=== PATIENT | male | born 1980 | race Caucasian/White ===

== ENCOUNTER 2023-01-18 11:25 | Emergency (ER) | payer MEDICARE, MEDICAID, SELFPAY ==
[2023-01-18 11:41] VITALS: BP 134/73; PULSE 66; RESP 16; TEMP 36.6; O2SAT 100
--- NOTE | 2023-01-18 12:20 | ED.HEATRA ---
HPI - Head Injury General Chief complaint: Head Injury Stated complaint: Right Head Injury Time Seen by Provider: 01/18/23 11:52 Source: patient and RN notes reviewed Mode of arrival: ambulatory Limitations: no limitations History of Present Illness HPI Narrative: Patient presents today complaining of a laceration to his right eyebrow. He tripped over an extension cord just prior to arrival and struck his eyebrow area either on his couch or the wall as he fell. Denies loss of consciousness. Denies neck pain, headache, nausea vomiting, vision changes, or any additional symptoms. 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 He does have a shunt, but is currently healthy and is on no medications. Related Data Home Medications Medication Instructions Recorded Confirmed No Home Medications 01/18/23 01/18/23 Allergies Allergy/AdvReac Type Severity Reaction Status Date / Time No Known Allergies Allergy Verified 01/18/23 11:39 Review of Systems Review of Systems: CONSTITUTIONAL: Denies body aches, fever, chills, or sweats. EYES: Denies visual changes, redness, or discharge. ENT: Denies rhinorrhea, congestion, sore throat, or otalgia. CARDIOVASCULAR: Denies chest pain, palpitations, or edema. RESPIRATORY: Denies cough or dyspnea. GASTROINTESTINAL: Denies abdominal pain, nausea, vomiting, or diarrhea. GENITOURINARY: Denies dysuria or hematuria. SKIN: Denies rash, itching. + right eyebrow laceration MUSCULOSKELETAL: Denies back pain, joint pain, or myalgia. NEUROLOGIC: Denies headache, numbness, tingling, or weakness. PSYCH: Denies depression or anxiety. [facility] Past Medical History Medical History (Updated 01/18/23 @ 12:41 by Kia Silverman, RADHA, ) History of stroke Personal history of testicular cancer Surgical History Surgical History (Updated 01/18/23 @ 12:41 by Kia Silverman, CALL OUT CLERK, ) S/P [facility] CERTIFIED CONCIERGE shunt Comments At time of signature, I have reviewed and agree with nursing past medical, surgical, social and family history unless otherwise noted. Please see nursing chart for further information. There is no relevant family history pertinent to the presenting complaint Exam Narrative: GENERAL: Well-appearing, well-nourished, and in no acute distress. HEAD: Normocephalic. EYES: EOMI. PERRL. No nystagmus. Orbits are nontender. Conjunctiva normal. 2 cm L-shaped full-thickness linear laceration to the right eyebrow. No active bleeding. Mild surrounding edema. No deformity or instability noted. ENT: Mucous membranes pink and moist. Nares clear. No rhinorrhea. NECK: Normal AROM. CHEST: No respiratory distress. EXTREMITIES: Normal range of motion. No edema. SKIN: Warm, dry, no rash. Capillary refill normal. Normal skin turgor. NEURO: No focal deficits. Alert and oriented x3. Gait steady. PSYCH: Normal affect. No signs of depression or anxiety. Course Course Level of Care: Express Care Visit Vital Signs Vital signs: Vital Signs Temperature 97.8 F 01/18/23 11:41 Pulse Rate 66 01/18/23 11:41 Respiratory Rate 16 01/18/23 11:41 Blood Pressure 134/73 01/18/23 11:41 Pulse Oximetry 100 01/18/23 11:41 Oxygen Delivery Room Air 01/18/23 11:41 Temperature 97.8 F 01/18/23 11:41 Pulse Rate 66 01/18/23 11:41 Respiratory Rate 16 01/18/23 11:41 Blood Pressure 134/73 01/18/23 11:41 Pulse Oximetry 100 01/18/23 11:41 Oxygen Delivery Room Air 01/18/23 11:41 Reviewed. Pt has been instructed to follow up with his PCP regarding his elevated blood pressure today. Procedures Laceration Laceration 1: Date: 01/18/23 Time: 12:21 Site: face (Right eyebrow) Side (If applicable): right Size (cm): 2 Description: irregular Depth: simple, single layer Local Anesthetic: lidocaine 1% Amount of anesthesia used (mL): 2 Pre-repa
== END 2023-01-18 12:26 | disposition home or self-care (01) ==
PROVIDERS: Emergency Provider Nurse Practitioner; PCP Internal Medicine Endocrinology, Diabetes & Metabolism
DX: S01.111A Laceration without foreign body of right eyelid and periocular area, initial encounter (principal); W01.10XA Fall on same level from slipping, tripping and stumbling with subsequent striking against unspecified object, initial encounter; Z86.73 Personal history of transient ischemic attack (TIA), and cerebral infarction without residual deficits; Z85.47 Personal history of malignant neoplasm of testis; Z85.841 Personal history of malignant neoplasm of brain; Z85.118 Personal history of other malignant neoplasm of bronchus and lung; Z98.2 Presence of cerebrospinal fluid drainage device
CPT/HCPCS: 12011; 99213; G0463